=== PATIENT | male | born 1975 | race Hispanic/Latino ===

== ENCOUNTER 2017-07-08 21:16 | Emergency (ER) | payer SELFPAY ==
[~2017-07-08] VITALS: Ht 167.6 cm; Wt 98.8 kg
[2017-07-08 22:09] LABS: HEMATOCRIT 50.3 % (38.0-50.0); HEMOGLOBIN 17.5 G/DL (12.5-16.6); MCH 29.5 PG (29.0-34.0); MCHC 34.8 G/DL (30.0-36.0); MCV 84.8 FL (86-99); PLATELET COUNT 158 K/uL (156-360); RBC DIS.WIDTH-CV 12.6 % (11.8-14.6); RBC DIS.WIDTH-SD 38.5 % (39-53); RED BLOOD COUNT 5.93 M/uL (4.00-5.50); WHITE BLOOD COUNT 4.9 K/uL (4.1-10.2)
[2017-07-08 22:20] LABS: CHLORIDE 108 mEq/L (99-109); SODIUM 138 mEq/L (136-147)
[2017-07-08 22:21] LABS: GLUCOSE 86 mg/dL (70-99)
[2017-07-08 22:25] LABS: CREATININE 1.2 mg/dL (0.6-1.3)
[2017-07-08 22:26] LABS: GFR ESTIMATE (CALCULATED) > 59 mL/min/ (58.99-99999); UREA NITROGEN (BUN) 14 mg/dL (9-23)
[2017-07-08 22:29] LABS: TROP-I INTERPRETATION NEGATIVE; TROPONIN-I < 0.01 ng/mL (0.0-0.30)
[2017-07-08 22:54] LABS: ALBUMIN 3.8 g/dL (3.2-4.8)
[2017-07-08 22:57] LABS: TOTAL PROTEIN 6.5 g/dL (6.4-8.3)
[2017-07-08 22:58] LABS: TOTAL BILIRUBIN 0.6 mg/dL (0.0-1.0)
[2017-07-08 23:00] LABS: ALKALINE PHOSPHATASE 81 IU/L (3-129)
[2017-07-08 23:02] LABS: AST (GOT) 26 IU/L (2-34); DIRECT BILIRUBIN 0.2 mg/dL (0.0-0.3)
[2017-07-08 23:03] LABS: ALT (GPT) 24 IU/L (3-49); LIPASE 26 U/L (1.0-51.0)
[2017-07-09 01:31] LABS: CREATINE KINASE 277 IU/L (1-294)
[2017-07-09] MEDS ORDERED: TAMIFLU75 MG PO (02:08)
[2017-07-09] MEDS ORDERED: MOTRIN800 MG PO (02:11)
[2017-07-09] MEDS ORDERED: LIDOCAINE700 MG TP (02:11)
[2017-07-09 02:55] VITALS: BP 136/97
== END 2017-07-09 02:56 | disposition home or self-care (01) ==
LOC: EME 21:16
PROVIDERS: Emergency Medicine
DX: J10.1 Influenza due to other identified influenza virus with other respiratory manifestations (principal); F17.200 Nicotine dependence, unspecified, uncomplicated
CPT/HCPCS: 71046; 80048; 80076; 82550; 83690; 84484; 85027; 87502; 87651 90; 93005; 94640; 99281; 99285; J1100